=== PATIENT | male | born 2000 | race Caucasian/White ===

== ENCOUNTER 2024-06-11 16:26 | Emergency (ER) | payer OTHER, SELFPAY ==
[2024-06-11 16:28] VITALS: BP 157/80; PULSE 54; RESP 16; TEMP 36.1; O2SAT 100; BMI 24.0
--- NOTE | 2024-06-11 16:49 | EDS_ITS ---
HPI History of Present Illness Chief Complaint: Eye Problem Informant: patient Onset/Context/Timing Location: Right Eye Onset: Yesterday Context: Sudden Onset Timing: Continuous Worsened by: Nothing Relieved by: Nothing Associated Symptoms Associated Symptoms - Eyes: Crusting, Drainage (Watery), Eyelid swelling (Mild), Foreign body sensation, Pain and Redness; Negative for Photophobia Visual Changes: right: Blurred vision History of injury: Yes and Foreign body Visual correction: None Narrative Narrative: Patient presents with right eye redness that became worse today. Patient states he was doing some work on a house yesterday and thinks something may have gotten into his eye. Patient states it was very henrry and the wind blew and he felt something go into his eye. Patient states he tried to wash it out last night. Patient admits to some mild blurry vision but denies any double vision. Patient denies any headaches. Patient does admit to some mild crusting when he woke up this morning. PFSH PFSH no medical history Allergy/AdvReac Type Severity Reaction Status Date / Time No Known Allergies Allergy Verified 06/11/24 16:29 no surgical history ROS ROS ED Constitutional Constitutional ED: Denies chills or fever(s) Eyes Eyes: Reports blurry vision; Denies diplopia ENT ENT ED: Reports rhinorrhea; Denies sore throat Cardiovascular Cardiovascular: Denies chest pain or palpitations Respiratory/Chest Respiratory/Chest: Denies cough or dyspnea Gastrointestinal Gastrointestinal: Denies nausea or vomiting Genitourinary Genitourinary ED: Denies dysuria or hematuria Musculoskeletal Musculoskeletal: Denies back pain or neck pain Integumentary Denies abscess or rash Neurologic Neurologic: Denies headache(s) or weakness Allergic/Immunologic Allergic/Immunologic ED: Denies mouth swelling or urticaria EXAM Physical Exam Const Vital Signs: 06/11/24 16:28 Temperature 97 F L Temperature Source Oral Pulse Rate 54 L Respiratory Rate 16 Blood Pressure 157/80 H Blood Pressure Mean 105 Pulse Ox 100 Oxygen Delivery Method Room Air Positive well nourished and well developed Constitutional Narrative: BMI is 24.0 General Appearance ED: well developed and NAD Eyes Eyes Narrative: Pupils are equal, round, reactive light bilaterally. Extraocular's are intact. Conjunctiva was injected on the right. Tetracaine and fluorescein dye was applied. On the left examination, there is no foreign body visualized. There is no corneal abrasion. Anterior chamber was clear. There is no hyphema. There is cell or flare. Neuro oriented x3, CN's II-XII intact bilaterally, moves all extremities and no sensory deficits noted Sensorium / Orientation: alert Motor Exam: strength 5/5 throughout MDM MDM MDM Narrative Medical decision making narrative: There were no foreign bodies or corneal abrasions visualized. The right eye was irrigated through a Jian lens. Patient was given Cipro ophthalmic drops and the bottle was dispensed to the patient with instructions to apply 1 drop every 2 hours to the right eye. Patient was instructed to follow-up in 1 to 2 days for reevaluation. Patient was instructed to return if worse in any way. Patient and father understood and were agreeable with the plan. All questions were answered. Discharge Plan Triage Chief Complaint: Eye Problem ED Provider: Hollis Gusman Dx/Rx/DC Orders Clinical Impression: Conjunctivitis Instructions: ED Conjunctivitis, Nonspecific Print Language: Sammarinese Disposition Disposition: Home, Self Care
[2024-06-11] MEDS: Tetracaine 0.5% Ophthalmic Bottle 1 DRP RIGHT EYE (17:10)
[2024-06-11] MEDS: Fluorescein 1 MG STRIP 1 STRIP RIGHT EYE (17:11)
[2024-06-11] MEDS: Ciprofloxacin 0.3% 2.5ml Bottle RIGHT EYE (17:11)
== END 2024-06-11 17:39 | disposition home or self-care (01) ==
LOC: ED 16:59
PROVIDERS: Emergency Provider Emergency Medicine; Visit Provider Emergency Medicine
DX: H10.9 Unspecified conjunctivitis (principal); X58.XXXA Exposure to other specified factors, initial encounter; Y93.89 Activity, other specified; Y92.019 Unspecified place in single-family (private) house as the place of occurrence of the external cause
CPT/HCPCS: 99284